=== PATIENT | female | born 1940 | race Caucasian/White ===

== ENCOUNTER 2017-03-20 16:33 | Emergency (ER) | payer MEDICARE ==
[~2017-03-20] VITALS: Ht 167.6 cm; Wt 97.4 kg
[2017-03-20] MEDS ORDERED: SODIUM CHLORIDE FLUSH 10ML SYR IVF ONE (17:00)
[2017-03-20] MEDS ORDERED: ALBUTEROL/IPRATROPIUM 2.5MG/0.5MG, 3 ML NPPB SCH (17:00)
[2017-03-20 17:01] LABS: BASOPHILS % (AUTO) 0 % (0-1); EOSINOPHILS # (AUTO) 0.07 x10^3/uL (0-0.4); EOSINOPHILS % (AUTO) 1 % (1-7); LYMPHOCYTES # (AUTO) 0.64 x10^3/uL (1-3.4); LYMPHOCYTES % (AUTO) 8 % (22-44); MD NO; MEAN CORPUSCULAR HGB CONC 31.7 g/dL (32.4-35.8); MEAN CORPUSCULAR VOLUME 88.3 fL (80-100); MEAN PLATELET VOLUME 8.2 fL (7.4-10.4); MONOCYTES # (AUTO) 0.53 x10^3/uL (0.2-0.8); MONOCYTES % (AUTO) 7 % (2-9); NEUTROPHILS # (AUTO) 6.95 x10^3/uL (1.8-6.8); NEUTROPHILS % (AUTO) 85 % (42-75); PLATELET COUNT 262 x10^3/uL (130-400); RED BLOOD COUNT 4.29 x10^6/uL (3.82-5.3); RED CELL DISTRIBUTION WIDTH 19.1 % (9.6-15.2)
[2017-03-20] MEDS ORDERED: ALBUTEROL/IPRATROPIUM 2.5MG/0.5MG, 3 ML ONE (17:07)
[2017-03-20 17:12] LABS: INTERNATIONAL NORMALIZED RATIO 2.04 (0.93-1.1); PROTHROMBIN TIME 20.9 Seconds (9.6-11.5)
[2017-03-20 17:14] LABS: ALANINE AMINOTRANSFERASE 34 U/L (12-78); ALBUMIN 3.4 g/dL (3.4-5.0); ANION GAP 8 mmol/L (5-15); CALCIUM 8.9 mg/dL (8.5-10.1); CHLORIDE 96 mmol/L (98-107); CREATININE 1.26 mg/dL (0.55-1.02)
[2017-03-20 17:19] LABS: ALKALINE PHOSPHATASE 115 U/L (45-117); BILIRUBIN,TOTAL 1.7 mg/dL (0.2-1.0); TROPONIN I 0.027 ng/mL (0.000-0.045)
[2017-03-20] MEDS ORDERED: CALC-451 PO (17:23)
[2017-03-20] MEDS ORDERED: DICL100G19 TP (17:23)
[2017-03-20] MEDS ORDERED: METO25TA35 PO (17:23)
[2017-03-20] MEDS ORDERED: CHOL100011 PO (17:23)
[2017-03-20] MEDS ORDERED: FOLI20CA PO (17:23)
[2017-03-20] MEDS ORDERED: METH2.5T PO (17:23)
[2017-03-20] MEDS ORDERED: ATOR-2 PO (17:23)
[2017-03-20] MEDS ORDERED: HYDR200T PO (17:23)
[2017-03-20] MEDS ORDERED: WARF5TAB7 PO (17:23)
[2017-03-20] MEDS ORDERED: ASPI-515 PO (17:23)
[2017-03-20] MEDS ORDERED: POTA8TAB46 PO (17:23)
[2017-03-20] MEDS ORDERED: FURO20TA3 PO (17:23)
[2017-03-20 18:18] VITALS: BP 147/57
== END 2017-03-20 18:46 | disposition home or self-care (01) ==
LOC: ED 18:45
DX: I48.2 Chronic atrial fibrillation (principal); R07.89 Other chest pain; J15.9 Unspecified bacterial pneumonia; Z79.01 Long term (current) use of anticoagulants; I48.92 Unspecified atrial flutter
CPT/HCPCS: 36415; 71045; 80053; 83880; 84484; 85025; 85610; 85730; 93005; 99285; J7620